=== PATIENT | female | born 1970 | race African-American/Black ===

== ENCOUNTER 2018-09-14 19:33 | Observation (INO) | payer BC ==
[~2018-09-14] VITALS: Ht 160 cm; Wt 107.6 kg
[~2018-09-14 19:33] MED LIST: ASPIRIN LOW81 M1 PO; ATENOLOL50 MG OR; ATIVAN0.5 MG OR; BACTRIM DS1 TAB OR; BACTRIM DS1 TAB PO; BL ADULT ASA81 MG OR; CIPROFLOXACN500 MG PO; DEPO-MEDROL80 MG/ML IM; DOXYCYC MONO100 MG OR; FLEXERIL PO; FLUARIX QUADRIV1 INJ IM; FLUOXETINE10 MG PO; GLYBURIDE2.5 M1 PO; GLYBURIDE2.5 MG PO; GLYBURIDE5 M1 PO; GLYBURIDE5 MG PO; HYDROXYZ HCL25 MG PO; LEVAQUIN500 MG PO; LISINOPRIL10 MG PO; LORTAB 5 OR; MEDDOSEPAK OR; METFORMIN HCL1000 MG PO; METFORMIN500 MG PO; NAPROSYN500 MG OR; NAPROSYN500 MG PO; NAPROXEN EC500 MG PO; NITROFURANTN100 M2 PO; PERCOCET 5/325M1 TAB OR; PRAVASTATIN SOD10 MG PO; PROAIR HFA IN; QVAR80 MCG IN; ROCEPHIN 1 GM1 GM IM; ROCEPHIN 2 GM2 GM IM; TAMOXIFEN; TAMOXIFEN CITRA20 MG OR; TAMOXIFEN OR; TAMOXIFEN XX; TAMOXIFEN10 MG OR; TRAZODONE50 MG PO; ZOLOFT100 MG OR
--- NOTE | 2018-09-14 19:50 | NUR ---
PT. TO ROOM 6 IN STABLE CONDITION.
--- NOTE | 2018-09-14 20:09 | NUR ---
PRE OWNED SALES MANAGER AT BEDSIDE
[2018-09-14 20:32] LABS: HEMATOCRIT 33.7 % (37.0-47.0); HEMOGLOBIN 10.4 g/dl (12.0-16.0); IMMATURE GRANULOCYTES 0.2 % (0.0-5.0); MEAN CELL VOLUME 76.6 fL CALC (80.0-100.0); MEAN CORPUSCULAR HGB 23.6 pG CALC (26.0-32.0); MEAN CORPUSCULAR HGB CONC 30.9 g/L CALC (32.0-36.0); NEUT# 5.1 thou/uL (2.00-7.15); RED BLOOD COUNT 4.4 mill/uL (4.20-5.60); RED CELL DISTRI WIDTH 18.4 % (11.5-15.5)
--- NOTE | 2018-09-14 20:37 | NUR ---
XRAY AT BEDSIDE
[2018-09-14 21:15] LABS: ALBUMIN 4.3 g/dL (3.2-5.0); ALKALINE PHOSPHATASE 97 u/l (38-126); ANION GAP 18 (6-22 (CALC)); BILIRUBIN, TOTAL 0.3 mg/dL (0.0-1.4); BUN 11 mg/dL (7-17); BUN/CREATININE RATIO 14 (12-20 (CALC)); CARBON DIOXIDE 24 mmol/l (22-30); CHLORIDE 104 mmol/l (95-108); CREATININE 0.8 mg/dL (0.5-1.0); ETHYL ALCOHOL 0 mg/dl (0-30); GFR > 60 ML/MIN (>=60 (CALC)); GFR FOR AFR.AMER. > 60 ML/MIN (>=60 (CALC)); LIPASE 339 u/l (23-300); POTASSIUM 4.3 mmol/l (3.5-5.1); SGOT/AST 27 u/l (14-36); SODIUM 141 mmol/l (137-146); TOTAL PROTEIN 8.1 g/dL (6.3-8.2)
[2018-09-14 21:27] LABS: MYOGLOBIN 17 ng/mL (0 - 62)
--- NOTE | 2018-09-14 21:50 | NUR ---
PT FEELS BETTER. NO NAUSEA. UP TO BR TO VOID. URINE SENT.
[2018-09-14 21:56] LABS: URINE BILIRUBIN - DIPSTICK NEGATIVE (NEGATIVE); URINE BLOOD DIPSTICK NEGATIVE (NEGATIVE); URINE COLOR YELLOW; URINE GLUCOSE - DIPSTICK NEGATIVE (NEGATIVE); URINE KETONE NEGATIVE (NEGATIVE); URINE LEUK ESTERASE NEGATIVE (NEGATIVE); URINE NITRITE - DIPSTICK NEGATIVE (Negative); URINE PH 5.5 (4.5-8.0); URINE PROTEIN - DIPSTICK NEGATIVE (NEG-TRACE); URINE UROBILINOGEN - DIPSTICK 0.2 E.U./dL (0.2)
[2018-09-14 22:00] LABS: BARBITURATES NEGATIVE (NEGATIVE); COCAINE NEGATIVE (NEGATIVE); METHADONE NEGATIVE (NEGATIVE); OXCYCODONE NEGATIVE (NEGATIVE); TETRAHYDROCANNABIONOL NEGATIVE (NEGATIVE); TRICYLIC ANTIDEPRESSANTS NEGATIVE (NEGATIVE)
[2018-09-15] MEDS ORDERED: ATENOLOL50 MG PO (00:53)
[2018-09-15] MEDS ORDERED: VITAMIN D22000 UNIT PO (00:54)
[2018-09-15] MEDS ORDERED: GLYBURIDE5 M1 PO (00:55)
[2018-09-15] MEDS ORDERED: RANITIDINE150 M1 PO (00:56)
[2018-09-15] MEDS ORDERED: LEVOTHYROXIN125 MCG PO (00:57)
--- NOTE | 2018-09-15 01:00 | NUR ---
REPORT TO NURSE YASMANY, MED-SURG.
--- NOTE | 2018-09-15 01:12 | NUR ---
DR REQUESTED REPEAT EKG BE DONE PRIOR TO TAKING PT TO THE FLOOR. RETURNED TO ROOM AND EKG DONE. SHOWN TO DR. MORALES AND PT TAKEN TO FLOOR.
[2018-09-15 01:18] VITALS: BP 154/83
--- NOTE | 2018-09-15 01:25 | NUR ---
PT ARRIVED TO FLOOR VIA STRETCHER ACCOMPAINED BY ER STAFF AND FAMILY MEMBER. PT ALERT AND ORIENTED X3. RESPIRATIONS EVEN AND UNLABORED. PT AMBULATED FROM STRETCHER TO BED WITH STEADY GAIT. PT C/O MIGRAINE BUT REFUSED ANY MEDICATIONS AT THIS TIME. ONE TIME ORDER OBTAINED AT THIS TIME IF NEEDED PT AWARE. PT HAS HX OF MRSA NASAL SWAB OBATINED AND PLACE ON CONTACT PRECAUTIONS. IV SITE APPEARS HEALTHY. EDUCATED ON NPO STATUS. PT ORIENTED TO ROOM AND CALL LIGHT SYSTEM. VISITOR STAYING IN ROOM BLANKETS PROVIDED. CALL LIGHT WITHIN REACH. WILL CONTINUE TO MONITOR.
--- NOTE | 2018-09-15 01:27 | NUR ---
PT C/O HEADACHE...PT INITIALLY DECLINED ANYTHING FOR HEADACHE. STATES THAT SHE USUALLY TAKES EXCEDRIN AT HOME. FLOOR REQUESTED ORDER FOR HEADACHE MEDICATION. NOTIFIED. ORDER FOR PERCOCET 5MG PO X1 CALLED TO [facility].
[2018-09-15 04:30] VITALS: BP 117/59
[2018-09-15 04:54] LABS: HEMATOCRIT 31.7 % (37.0-47.0); HEMOGLOBIN 9.6 g/dl (12.0-16.0); IMMATURE GRANULOCYTES 0.3 % (0.0-5.0); MEAN CELL VOLUME 77.5 fL CALC (80.0-100.0); MEAN CORPUSCULAR HGB 23.5 pG CALC (26.0-32.0); MEAN CORPUSCULAR HGB CONC 30.3 g/L CALC (32.0-36.0); NEUT# 3.85 thou/uL (2.00-7.15); RED BLOOD COUNT 4.09 mill/uL (4.20-5.60); RED CELL DISTRI WIDTH 18.6 % (11.5-15.5)
[2018-09-15 05:17] LABS: ALBUMIN 3.7 g/dL (3.2-5.0); ALKALINE PHOSPHATASE 82 u/l (38-126); ANION GAP 14 (6-22 (CALC)); BILIRUBIN, TOTAL 0.3 mg/dL (0.0-1.4); BUN 9 mg/dL (7-17); BUN/CREATININE RATIO 14 (12-20 (CALC)); CARBON DIOXIDE 25 mmol/l (22-30); CHLORIDE 107 mmol/l (95-108); CREATININE 0.7 mg/dL (0.5-1.0); GFR > 60 ML/MIN (>=60 (CALC)); GFR FOR AFR.AMER. > 60 ML/MIN (>=60 (CALC)); POTASSIUM 4.2 mmol/l (3.5-5.1); SGOT/AST 21 u/l (14-36); SODIUM 142 mmol/l (137-146); TOTAL PROTEIN 7.2 g/dL (6.3-8.2)
--- NOTE | 2018-09-15 07:10 | NUR ---
REPORT RECEIVED FROM EMRE JADE;PT APPEARS TO BE SLEEPING IN SEMI FOWLERS POSITION WITH FAMILY MEMBER AT BEDSIDE;NO S/S OF DISTRESS NOTED;RESPIRATIONS EVEN AND UNLABORED ON RA;CONTACT PRECAUTIONS REMAIN IN PLACE FOR HX OF MRSA;ALL SAFETY PRECAUTIONS REINFORCED WITH BED IN THE LOWEST POSITION AND CALL LIGHT IN REACH;WILL CONTINUE TO MONITOR
[2018-09-15 08:09] VITALS: BP 131/77
--- NOTE | 2018-09-15 08:10 | NUR ---
PT RESTING IN SEMI FOWLERS POSITION WITH FAMILY MEMBER AT BEDSIDE;VS OBTAINED AND ASSESSMENT COMPLETED;PT DENIES ANY CURRENT CHEST OR ABDOMINAL PAIN,PAIN SCALE AND REPORTING EDUCATED;RESPIRATIONS EVEN AND UNLABORED ON RA;ABDOMEN DISTENDED/SOFT ON PALPATION AND ACTIVE IN ALL 4 QUADRANTS;WEAK PEDAL PULSES;SKIN INTACT;#18G TO LAC INFUSING NS @ 125ML/HR WITH EASE,SITE APPEARS HEALTHY;TELE MONITORING IN PLACE;NPO DIET REINFORCED AND PT VERBALIZES UNDERSTANDING;PT DENIES ANY ADDITIONAL NEEDS AT THIS TIME AND IS ENCOURAGED TO CALL FOR ASSISTANCE IF NEEDED;FALL PRECAUTIONS IN PLACE WITH CALL LIGHT IN REACH;WILL CONTINUE TO MONITOR
[2018-09-15 08:55] LABS: CHOLESTEROL HDL RATIO 4.2 (<4.4 (CALC)); MAGNESIUM 1.9 mg/dL (1.6-2.3)
[2018-09-15 10:29] VITALS: BP 141/89
[2018-09-15 10:35] VITALS: BP 141/89
--- NOTE | 2018-09-15 12:10 | NUR ---
AT BEDSIDE DISCUSSING POC.
--- NOTE | 2018-09-15 12:10 | NUR ---
PT RESTING IN SEMI FOWLERS POSITION WITH DAUGHTER AT BEDSIDE;RESPIRATIONS EVEN AND UNLABORED ON RA;IV FLUIDS CONTINUE TO INFUSE TO LAC WITH EASE;TELE MONITORING IN PLACE;PT REPORTS THAT HEADACHE PAIN HAS DECREASED TO A 4/10 ON THE PAIN SCALE;PT DENIES ANY CURRENT NEEDS AND IS ENCOURAGED TO CALL FOR ASSISTANCE IF NEEDED;CALL LIGHT IN REACH;WILL CONTINUE TO MONITOR
[2018-09-15] MEDS ORDERED: ULTRAM50 MG PO (14:22)
[2018-09-15] MEDS ORDERED: PROTONIX40 MG PO (14:22)
--- NOTE | 2018-09-15 15:00 | NUR ---
ALL DISCHARGE INSTRUCTIONS PROVIDED AT THIS TIME;PRESCRIPTIONS FOR PROTONIX AND ULTRAM PROVIDED FOR HOME;ALL QUESTIONS ANSWERED;IV SITE REMOVED WITH CATHETER INTACT;WHEELCHAIR TO BE PROVIDED FOR DISCHARGE HOME.
--- NOTE | 2018-09-15 15:11 | NUR ---
Discharge instructions given. Patient verbalizes understanding of same. Discharged in stable condition via Wheelchair to Home with family. All belongings sent with pt. Pt wheelchaired to lobby accompanied by daughter and volunteer in stable condition. Note to return to work provided.
== END 2018-09-15 15:11 | disposition home or self-care (01) | DRG 206 ==
LOC: ED 19:33 → ED-I 23:30 → ED 09-15 00:24 → MS2 09-15 00:25
PROVIDERS: Nurse Practitioner Family; ADMIT Internal Medicine Nephrology; ATTEND Internal Medicine Nephrology
DX: M94.0 Chondrocostal junction syndrome [Tietze] (principal); Z68.41 Body mass index [BMI] 40.0-44.9, adult; I16.0 Hypertensive urgency; I10 Essential (primary) hypertension; E11.9 Type 2 diabetes mellitus without complications; R74.8 Abnormal levels of other serum enzymes; E66.01 Morbid (severe) obesity due to excess calories; E78.5 Hyperlipidemia, unspecified; E03.9 Hypothyroidism, unspecified; K21.9 Gastro-esophageal reflux disease without esophagitis; D64.9 Anemia, unspecified; Z90.13 Acquired absence of bilateral breasts and nipples; Z85.3 Personal history of malignant neoplasm of breast
CPT/HCPCS: G0378

== ENCOUNTER 2020-10-20 10:10 | Inpatient (IN) | payer BC ==
[~2020-10-20] VITALS: Ht 160 cm; Wt 98.0 kg
[~2020-10-20 10:10] MED LIST changes: +ASPIRIN LOW DOS81 M1 PO; -ASPIRIN LOW81 M1 PO; +ATENOLOL50 MG PO; +LEVOTHYROXIN125 MCG PO; +PROTONIX40 MG PO; +RANITIDINE150 M1 PO; +ULTRAM50 MG PO; +VITAMIN D22000 UNIT PO
[2020-10-20] MEDS ORDERED: AMITRIPTYLIN10 MG PO (11:25)
[2020-10-20] MEDS ORDERED: LIPITOR20 M1 PO (11:26)
[2020-10-20] MEDS ORDERED: BYDUREON2 MG SC (11:27)
[2020-10-20 11:28] LABS: IMMATURE GRANULOCYTES 0.2 % (0.0-5.0); MEAN CELL VOLUME 75.3 fL CALC (80.0-100.0); MEAN CORPUSCULAR HGB 22.4 pG CALC (26.0-32.0); MEAN CORPUSCULAR HGB CONC 29.8 g/dL CAL (32.0-36.0); NEUT# 2.41 thou/uL (2.00-7.15); RED BLOOD COUNT 5.26 mill/uL (4.20-5.60); RED CELL DISTRI WIDTH 19.9 % (11.5-15.5)
[2020-10-20] MEDS ORDERED: B-12 COMPL1000 MCG/M (11:28)
[2020-10-20] MEDS ORDERED: VITAMIN D50000 UNIT (11:28)
[2020-10-20] MEDS ORDERED: JARDIANCE10 MG PO (11:29)
[2020-10-20 11:33] LABS: HEMATOCRIT 39.6 % (37.0-47.0); HEMOGLOBIN 11.8 g/dl (12.0-16.0)
[2020-10-20 11:46] LABS: ALKALINE PHOSPHATASE 93 u/l (38-126); ANION GAP 19 (6-22 (CALC)); BUN 11 mg/dL (7-17); BUN/CREATININE RATIO 12 (12-20 (CALC)); CARBON DIOXIDE 24 mmol/l (22-30); CHLORIDE 98 mmol/l (95-108); CREATININE 0.9 mg/dL (0.5-1.0); GFR > 60 ML/MIN (>=60 (CALC)); GFR FOR AFR.AMER. > 60 ML/MIN (>=60 (CALC)); POTASSIUM 4.7 mmol/l (3.5-5.1); SGOT/AST 31 u/l (14-36); SODIUM 137 mmol/l (137-146)
[2020-10-20 11:47] LABS: ALBUMIN 4.8 g/dL (3.2-5.0); BILIRUBIN, TOTAL 0.6 mg/dL (0.0-1.4); TOTAL PROTEIN 8.9 g/dL (6.3-8.2)
[2020-10-20 11:54] LABS: MYOGLOBIN 23 ng/mL (0 - 62)
[2020-10-20 16:56] LABS: URINE BILIRUBIN - DIPSTICK NEGATIVE (NEGATIVE); URINE BLOOD DIPSTICK NEGATIVE (NEGATIVE); URINE COLOR YELLOW; URINE GLUCOSE - DIPSTICK 250 mg/dL (NEGATIVE); URINE KETONE 15 mg/dL (NEGATIVE); URINE LEUK ESTERASE NEGATIVE (NEGATIVE); URINE NITRITE - DIPSTICK NEGATIVE (Negative); URINE PROTEIN - DIPSTICK NEGATIVE (NEG-TRACE); URINE UROBILINOGEN - DIPSTICK 0.2 E.U./dL (0.2)
[2020-10-20 18:10] VITALS: BP 135/89
[2020-10-21 00:05] VITALS: BP 118/72
[2020-10-21 03:30] VITALS: BP 115/83
[2020-10-21 05:59] LABS: MEAN CELL VOLUME 75.7 fL CALC (80.0-100.0); MEAN CORPUSCULAR HGB 22.2 pG CALC (26.0-32.0); MEAN CORPUSCULAR HGB CONC 29.3 g/dL CAL (32.0-36.0); RED BLOOD COUNT 4.24 mill/uL (4.20-5.60); RED CELL DISTRI WIDTH 19.5 % (11.5-15.5)
[2020-10-21 06:02] LABS: HEMATOCRIT 32.1 % (37.0-47.0); HEMOGLOBIN 9.4 g/dl (12.0-16.0)
[2020-10-21 06:10] LABS: ALKALINE PHOSPHATASE 76 u/l (38-126); ANION GAP 14 (6-22 (CALC)); BILIRUBIN, TOTAL 0.5 mg/dL (0.0-1.4); BUN 6 mg/dL (7-17); BUN/CREATININE RATIO 10 (12-20 (CALC)); C-REACTIVE PROTEIN 2.3 mg/dL (0-0.9); CARBON DIOXIDE 21 mmol/l (22-30); CHLORIDE 107 mmol/l (95-108); CREATININE 0.7 mg/dL (0.5-1.0); GFR > 60 ML/MIN (>=60 (CALC)); GFR FOR AFR.AMER. > 60 ML/MIN (>=60 (CALC)); HDL CHOLESTEROL 31 mg/dL (>=40); POTASSIUM 4.7 mmol/l (3.5-5.1); SGOT/AST 24 u/l (14-36); SODIUM 137 mmol/l (137-146); TOTAL TRIGLYCERIDES 73 mg/dl (30-149); VLDL CHOLESTROL 15 mg/dl (1-41 (CALC))
[2020-10-21 06:20] LABS: ALBUMIN 3.6 g/dL (3.2-5.0); CALCULATED LDLCHOLESTEROL 77 mg/dL (62-129 (CALC)); TOTAL CHOLESTEROL 123 mg/dl (0-199); TOTAL PROTEIN 7.1 g/dL (6.3-8.2)
[2020-10-21 09:06] VITALS: BP 101/68
[2020-10-21 11:05] VITALS: BP 127/80
[2020-10-21 15:10] VITALS: BP 119/82
[2020-10-21 19:20] VITALS: BP 138/77
[2020-10-22] VITALS (8 sets, daily range): BP systolic 113–145; BP diastolic 68–89
[2020-10-22 05:41] LABS: HEMATOCRIT 31.4 % (37.0-47.0); HEMOGLOBIN 9.5 g/dl (12.0-16.0); IMMATURE GRANULOCYTES 0.8 % (0.0-5.0); MEAN CELL VOLUME 74.8 fL CALC (80.0-100.0); MEAN CORPUSCULAR HGB 22.6 pG CALC (26.0-32.0); MEAN CORPUSCULAR HGB CONC 30.3 g/dL CAL (32.0-36.0); NEUT# 2.13 thou/uL (2.00-7.15); RED BLOOD COUNT 4.2 mill/uL (4.20-5.60); RED CELL DISTRI WIDTH 19.6 % (11.5-15.5)
[2020-10-22 05:52] LABS: ALBUMIN 3.9 g/dL (3.2-5.0); ALKALINE PHOSPHATASE 61 u/l (38-126); ANION GAP 14 (6-22 (CALC)); BILIRUBIN, TOTAL 0.7 mg/dL (0.0-1.4); BUN 8 mg/dL (7-17); BUN/CREATININE RATIO 15 (12-20 (CALC)); C-REACTIVE PROTEIN 1.1 mg/dL (0-0.9); CARBON DIOXIDE 21 mmol/l (22-30); CHLORIDE 109 mmol/l (95-108); CREATININE 0.5 mg/dL (0.5-1.0); GFR > 60 ML/MIN (>=60 (CALC)); GFR FOR AFR.AMER. > 60 ML/MIN (>=60 (CALC)); POTASSIUM 4.7 mmol/l (3.5-5.1); SGOT/AST 26 u/l (14-36); SODIUM 139 mmol/l (137-146); TOTAL PROTEIN 7.6 g/dL (6.3-8.2)
[2020-10-23 04:05] VITALS: BP 125/82
[2020-10-23 08:30] VITALS: BP 114/72
[2020-10-23 11:13] VITALS: BP 131/84
[2020-10-23 15:19] VITALS: BP 135/86
[2020-10-23 19:50] VITALS: BP 137/70
[2020-10-24] VITALS: BP 155/78
[2020-10-24 04:00] VITALS: BP 147/82
[2020-10-24 05:37] LABS: HEMATOCRIT 30.4 % (37.0-47.0); IMMATURE GRANULOCYTES 0.7 % (0.0-5.0); MEAN CORPUSCULAR HGB 22.5 pG CALC (26.0-32.0); MEAN CORPUSCULAR HGB CONC 29.6 g/dL CAL (32.0-36.0); NEUT# 3.43 thou/uL (2.00-7.15); RED CELL DISTRI WIDTH 19.6 % (11.5-15.5)
[2020-10-24 06:09] LABS: ANION GAP 13 (6-22 (CALC)); BUN 10 mg/dL (7-17); BUN/CREATININE RATIO 15 (12-20 (CALC)); CARBON DIOXIDE 21 mmol/l (22-30); CHLORIDE 109 mmol/l (95-108); CREATININE 0.6 mg/dL (0.5-1.0); GFR > 60 ML/MIN (>=60 (CALC)); GFR FOR AFR.AMER. > 60 ML/MIN (>=60 (CALC)); POTASSIUM 3.8 mmol/l (3.5-5.1); SODIUM 139 mmol/l (137-146)
[2020-10-24 07:40] VITALS: BP 116/62
[2020-10-24 10:08] VITALS: BP 150/86
[2020-10-24] MEDS ORDERED: LISINOPRIL20 M1 PO (11:45)
[2020-10-24] MEDS ORDERED: LEVOTHYROXIN50 MC1 PO (11:46)
[2020-10-24] MEDS ORDERED: DEXAMETHASON6 MG PO (14:31)
[2020-10-24] MEDS ORDERED: ZITHROMAX250 MG PO (14:31)
[2020-10-24] MEDS ORDERED: TESSALON PER100 MG PO (14:32)
== END 2020-10-24 15:28 | disposition home or self-care (01) | DRG 871 ==
LOC: ED 10:10 → MS2 15:10 → ED 16:39 → MS2 16:39
PROVIDERS: Emergency Medicine; Nurse Practitioner; ADMIT Internal Medicine; ATTEND Internal Medicine
DX: A41.89 Other specified sepsis (principal); U07.1 COVID-19; J12.82 Pneumonia due to coronavirus disease 2019; I10 Essential (primary) hypertension; E11.9 Type 2 diabetes mellitus without complications; E78.5 Hyperlipidemia, unspecified; E03.9 Hypothyroidism, unspecified; D64.9 Anemia, unspecified; E66.01 Morbid (severe) obesity due to excess calories; Z68.38 Body mass index [BMI] 38.0-38.9, adult; Z79.84 Long term (current) use of oral hypoglycemic drugs; Z85.3 Personal history of malignant neoplasm of breast
CPT/HCPCS: J1650; J2060; Q9967